=== PATIENT | female | born 1965 | race Caucasian/White ===

== ENCOUNTER 2016-09-06 13:42 | Emergency (ER) | payer OTHER ==
[~2016-09-06] VITALS: Ht 165.1 cm; Wt 72.6 kg
[2016-09-06 13:47] VITALS: BP_SYST 108
--- NOTE | 2016-09-06 13:48 | NUR ---
PT. TO BED IN [facility], ASSUMED PT. CARE, REPORT RECEIVED BY CLARK HART
--- NOTE | 2016-09-06 13:50 | NUR ---
PT. TO ER [facility] B[facility]IA [place] C/O RIGHT HAND PAIN AND RIGHT ARM PAIN RADIATING TO LEFT SHOULDER STATES PAIN WAS 10/10, DENIES ANY OTHER COMPLAINTS, DENIES SOB, DENIES CP, FOLLOWS COMMANDS, CLEAR SPEECH, CAP REFILL < 3 SECS ON ALL EXTREMITIES
--- NOTE | 2016-09-06 13:55 | NUR ---
DR. CAIN AT BEDSIDE EXAMINING THE PT.
--- NOTE | 2016-09-06 13:57 | NUR ---
X RAY AT BEDSIDE
[2016-09-06 14:20] LABS: BASOPHILS % (AUTO) 1.5 % (0.0-2.0); EOSINOPHILS % (AUTO) 1.9 % (0.0-4.0); HEMATOCRIT 34.2 % (36-48); HEMOGLOBIN 11.7 g/dL (12.0-16.0); LYMPHOCYTES # (AUTO) 1.1 K/uL (1.0-5.5); LYMPHOCYTES % (AUTO) 43.7 % (20.5-51.5); MEAN CORPUSCULAR HEMOGLOBIN 30 pg (27-31); MEAN CORPUSCULAR HGB CONC 34 % (32-36); MEAN CORPUSCULAR VOLUME 89 fL (79.0-98.0); MONOCYTES # (AUTO) 0.2 K/uL (0.0-1.0); MONOCYTES % (AUTO) 7.3 % (1.7-9.3); NEUTROPHILS # (AUTO) 1.1 K/uL (1.8-7.7); NEUTROPHILS % (AUTO) 45.6 % (40.0-70.0); PLATELET COUNT (AUTO) 153 K/uL (130-430); RED BLOOD CELL COUNT(AUTO) 3.85 MIL/uL (4.2-6.2); RED CELL DISTRIBUTION WIDTH 12.3 % (9.0-15.0); WHITE BLOOD COUNT (AUTO) 2.5 K/uL (4.8-10.8)
[2016-09-06 14:22] LABS: CALCIUM 8.5 mg/dL (8.4-11.0); CREATININE 0.78 mg/dL (0.55-1.30); POTASSIUM 4.4 mmol/L (3.5-5.1)
[2016-09-06 14:25] LABS: INR 1.1 (0.8-1.2); PROTHROMBIN TIME 11.4 SECS (9.5-12.5)
[2016-09-06 14:27] LABS: ALBUMIN 3.6 g/dL (3.4-4.8); TOTAL BILIRUBIN 0.4 mg/dL (0.0-1.0); TOTAL PROTEIN, SERUM 6.4 g/dL (6.4-8.3)
[2016-09-06] MEDS ORDERED: KETOROLAC TROMETHAMINE 60 MG/2 ML VIAL IM ONE (14:45)
[2016-09-06] MEDS ORDERED: HYDROcodone/ACETAMIN 10-325 MG TAB PO ONE (14:45)
--- NOTE | 2016-09-06 15:00 | NUR ---
PT. WAS MEDICATED WITH TORADOL IM REFUSED HER NORCO, STATES THAT PAIN HAS GONE DOWN VERY MUCH ON THE RIGHT HAND AND ARM PAIN 07/11
--- NOTE | 2016-09-06 15:15 | NUR ---
Spoke with Shannon HART regarding transfering pt back to [place]. States that they are in report and will call back in 15 minutes to discuss transfer of patient.
--- NOTE | 2016-09-06 15:16 | NUR ---
DR. CAIN SPEAKING WITH THE PT. IN REGARDS TO TREATMENT PLAN
--- NOTE | 2016-09-06 15:51 | NUR ---
pt. to be transfered back to [facility], informed of ride arrangement situation, states that she is comfortable
--- NOTE | 2016-09-06 17:26 | NUR ---
pt asleep at this time
[2016-09-06 18:00] VITALS: BP_SYST 120
--- NOTE | 2016-09-06 18:00 | NUR ---
Patient given written and verbal discharge instructions and verbalizes understanding. ER MD Dr. Guaman discussed with patient the results and treatment provided. Patient in stable condition. ID arm band removed. Rx of motrin and norco given. Patient educated on pain management and to follow up with PMD. Pain Scale 0/10 Opportunity for questions provided and answered.
== END 2016-09-06 18:00 ==
LOC: SED 13:42
DX: M79.602 Pain in left arm (principal); Z86.59 Personal history of other mental and behavioral disorders
CPT/HCPCS: 36415; 73090; 80053; 84703; 85025; 85610; 85730; 96372; 99285; J1885; J7030